=== PATIENT | male | born 1950 | race Caucasian/White ===

== ENCOUNTER 2022-11-27 08:21 | Day surgery (SDC) | payer MEDICARE ==
[2022-11-26 10:07] VITALS: BMI 31.1
[~2022-11-27 08:21] MED LIST: EPINEPHrine 0.3 MG in Ophthalmic Irrigation Solution 500 ML IRR SCH; Midazolam HCl 2 mg/2 ml Vial ONE; fentaNYL PF 100 MCG/2 ML SYRINGE ONE
[2022-11-27] MEDS ORDERED: Phenylephrine 2.5% Ophth Soln 5 ML BOT ONE (08:48)
[2022-11-27] MEDS ORDERED: Cyclopentolate 1% Opth Drop 2 ML BOT ONE (08:48)
[2022-11-27] MEDS ORDERED: CEFAZOLIN 1 GM VIAL ONE (10:12)
[2022-11-27] MEDS ORDERED: Bupivacaine 0.75% 10 ML VIAL ONE (10:12)
[2022-11-27] MEDS ORDERED: Maxitrol 0.1% Opth Oint 3.5 GM TUBE ONE (10:12)
[2022-11-27] MEDS ORDERED: Triamcinolone 40 MG/ML VIAL ONE (10:12)
[2022-11-27] MEDS ORDERED: Lidocaine 4% PF 5 ML AMP ONE (10:12)
[2022-11-27] MEDS ORDERED: Lidocaine 1% PF 5 ML VIAL ONE (10:12)
[2022-11-27] MEDS ORDERED: PROPOFOL 200 MG/20 ML VIAL ONE (10:12)
== END 2022-11-27 11:35 | disposition home or self-care (01) ==
LOC: SDC 08:21
PROVIDERS: ATTEND Ophthalmology Retina Specialist
PROC: 08T53ZZ Resection of Left Vitreous, Percutaneous Approach (ICD-10-PCS; principal; 2022-11-27)
PROC: 08QF3ZZ Repair Left Retina, Percutaneous Approach (ICD-10-PCS; 2022-11-27)
DX: H35.372 Puckering of macula, left eye (principal); H33.322 Round hole, left eye; G47.30 Sleep apnea, unspecified; E66.9 Obesity, unspecified; Z68.31 Body mass index [BMI] 31.0-31.9, adult; Z87.891 Personal history of nicotine dependence; Z79.899 Other long term (current) drug therapy; Z88.5 Allergy status to narcotic agent
CPT/HCPCS: J0171; J0690; J2250; J2704; J3301; J3490